=== PATIENT | male | born 1965 | race Caucasian/White ===

== ENCOUNTER 2019-12-23 16:32 | Observation (INO) | payer BC, OTHER ==
[~2019-12-23] VITALS: Ht 185.4 cm; Wt 134.4 kg
[~2019-12-23 16:32] MED LIST: ADULT LOW DOSE81 MG PO; ALLOPURINOL100 MG PO; ALTACE10 MG PO; BENZONATATE100 MG PO; CEFTIN500 MG PO; CLARITIN10 MG PO; DITROPAN XL5 MG PO; FLONASE16 GM; GLUCOPHAGE XR500 MG PO; HYDROCHLOROTHIA25 MG PO; LIPITOR10 MG PO; NORCO 10-325 T1 EACH PO; PAROXETINE HCL20 MG PO; POTASSIUM CHLO10 MEQ PO; PYRIDIUM200 MG PO; TEMAZEPAM30 MG PO; VALIUM5 MG PO
[2019-12-23] MEDS ORDERED: ONDANSETRON HCL INJ 2MG/ML 2ML 2 MG/ML VIAL IV STA (17:30)
[2019-12-23] MEDS ORDERED: SODIUM CHLORIDE 0.9% 1000ML 1,000 ML IV STA (17:30)
[2019-12-23] MEDS ORDERED: MORPHINE SULFATE INJ 4 MG/ML INJ 1ML IV STA (17:30)
[2019-12-23 17:46] LABS: BASOPHILS % 0.3 % (0.0-1.0); EOSINOPHILS % 0.2 % (0.0-6.0); HEMATOCRIT 42.5 % (38.2-49.6); HEMOGLOBIN 13.5 g/dL (14.0-18.0); LYMPHOCYTES # (AUTO) 1.5 (1.0-3.2); LYMPHOCYTES % 11.3 % (18.0-39.1); MEAN CORPUSCULAR HEMOGLOBIN 26.4 pg (28-32); MEAN CORPUSCULAR HGB CONC 31.8 g/dL (31-35); MEAN CORPUSCULAR VOLUME 83.2 fL (81-99); MONOCYTES # (AUTO) 0.8 (0.2-0.8); MONOCYTES % 5.8 % (4.4-11.3); NEUTROPHILS # (AUTO) 10.9 (2.1-6.9); NEUTROPHILS % 80.6 % (38.7-80.0); PLATELET COUNT 214 x10e3/uL (140-360); RED BLOOD COUNT 5.11 x10e6/uL (4.3-5.7); RED CELL DISTRIBUTION WIDTH 14.5 % (11.7-14.4)
[2019-12-23] MEDS ORDERED: DIATRIZOATE MEGL/DIATRIZOA SOD 30 ML BTL PO ONE (17:46)
[2019-12-23 17:53] LABS: PROTHROMBIN TIME 13.8 seconds (11.9-14.5)
[2019-12-23 17:54] LABS: PARTIAL THROMBOPLASTIN TIME 25.8 seconds (23.8-35.5)
[2019-12-23 18:05] LABS: ALANINE AMINOTRANSFERASE 46 IU/L (0-55); ALKALINE PHOSPHATASE 125 IU/L (40-150); ANION GAP 14.1 mmol/L (8-16); BLOOD UREA NITROGEN 14 mg/dL (7-26); BUN/CREATININE RATIO 16 (6-25); CALCIUM 9.9 mg/dL (8.4-10.2); CARBON DIOXIDE 27 mmol/L (22-29); CHLORIDE 101 mmol/L (98-107); CREATINE KINASE 67 IU/L (30-200); CREATININE, SERUM 0.86 mg/dL (0.72-1.25); EST GLOMERULAR FILTRATION RATE > 60 ML/MIN (60-); GLUCOSE 108 mg/dL (74-118); LIPASE 19 U/L (8-78); POTASSIUM 4.1 mmol/L (3.5-5.1); SODIUM 138 mmol/L (136-145)
[2019-12-23 18:07] LABS: BILIRUBIN,URINE NEGATIVE (NEGATIVE); CLARITY,URINE SL CLOUDY (CLEAR); COLOR,URINE YELLOW (YELLOW); KETONES,URINE NEGATIVE (NEGATIVE); LEUKOCYTE ESTERASE ,URINE NEGATIVE (NEGATIVE); NITRITE,URINE NEGATIVE (NEGATIVE); PROTEIN,URINE DIPSTICK NEGATIVE (NEGATIVE); URINE UROBILINOGEN 2 mg/dL (0.2 - 1)
[2019-12-23 18:08] LABS: BACTERIA,URINE FEW /HPF; EPITHELIAL CELLS,URINE FEW /LPF; MUCUS,URINE MODERATE (RARE); WBC,URINE (MAN) 0-5 /HPF (0-5)
--- NOTE | 2019-12-23 18:33 | Emergency Department Note ---
History of Present Illnes History of Present Illness Chief Complaint: Abdominal Complaints History of Present Illness This is a 54 year old male HERE FOR LOWER DULL ABDOMINAL PAIN SINCE THIS AFTERNOON AT 1PM. STATES THAT PAIN WAS SO BAD THAT HE HAD TO THROW UP, TRIED TAKING TUMS AND THEN HAD DIARRHEA X1 INSTANCE. Historian: Patient Arrival Mode: Car Onset (how long ago): hour(s) Location: lower abdomen Quality: pain Radiation: Reports non-radiation Severity: moderate Onset quality: sudden Timing of current episode: intermittent Progression: waxing and waning Chronicity: new Context: Denies recent illness Relieving factors: none Exacerbating factors: none Associated symptoms: Reports nausea/vomiting, Reports other (diarrhea) Treatments prior to arrival: none (RODERICK WARREN MD) Past Medical/Family History Physician Review I have reviewed the patient's past medical and family history. Any updates have been documented here. (RODERICK WARREN MD) Past Medical History Recent Fever: No Clinical Suspicion of Infectio: No New/Unexplained Change in Ment: No Past Medical History: Hypertension, Hyperlipedemia Other Medical History: GOUT ANXIETY Past Surgical History: Cholecysctectomy, Bariatric Surgery (RODERICK WARREN MD) Past Medical History: Hypertension (DANITA TURK DO) Social History Smoking Cessation: Never Smoker Counseling Performed: No Alcohol Use: None Any Illegal Drug Use: No TB Exposure/Symptoms: No Physically hurt or threatened: No (RODERICK WARREN MD) Other Last Tetanus: UNKNOWN Any Pre-Existing Lines (PICC,: No Is patient up to date on immun: No Last Flu: utd Last Pneumovax: utd (RODERICK WARREN MD) Review of Systems Review of Systems Constitutional: Reports no symptoms EENTM: Reports no symptoms Cardiovascular: Reports no symptoms Respiratory: Reports no symptoms Gastrointestinal: Reports as per HPI, Reports abdominal pain, Reports diarrhea, Reports nausea, Reports vomiting Genitourinary: Reports no symptoms Musculoskeletal: Reports no symptoms Integumentary: Reports no symptoms Neurological: Reports no symptoms Psychological: Reports no symptoms Endocrine: Reports no symptoms Hematological/Lymphatic: Reports no symptoms (RODERICK WARREN MD) Physical Exam Related Data Allergies: Coded Allergies: No Known Allergies (Unverified , 03/12/14) Triage Vital Signs Vital Signs Date Time Temp Pulse Resp B/P (MAP) Pulse Ox O2 Delivery O2 Flow Rate FiO2 12/23/19 17:10 97.8 77 16 117/83 100 Vital signs reviewed: Yes (RODERICK WARREN MD) Unable to obtain allergies: Unable to obtain due to (DANITA TURK, DO) Physical Exam CONSTITUTIONAL Constitutional: Present well-developed, Present well-nourished HENT HENT: Present normocephalic, Present atraumatic, Present oropharynx clear/moist, Present nose normal HENT L/R: Present left ext ear normal, Present right ext ear normal EYES Eyes: Reports PERRL, Reports conjunctivae normal NECK Neck: Present ROM normal PULMONARY Pulmonary: Present effort normal, Present breath sounds normal CARDIOVASCULAR Cardiovascular: Present regular rhythm, Present heart sounds normal, Present capillary refill normal, Present normal rate GASTROINTESTINAL Abdominal: Present soft, Present tender (moderate tenderness LLQ and suprapubic); Absent guarding, Absent mass, Absent rebound, Absent left CVA tenderness, Absent right CVA tenderness GENITOURINARY Genitourinary: Present exam deferred SKIN Skin: Present warm, Present dry MUSCULOSKELETAL Musculoskeletal: Present ROM normal NEUROLOGICAL Neurological: Present alert, Present oriented x 3, Present no gross motor or sensory deficits PSYCHOLOGICAL Psychological: Present mood/affect normal, Present judgement normal (RODERICK WARREN MD) Results Laboratory Result Diagram: 12/23/19 1723 12/23/19 1723 Laboratory Laboratory Tests Test 12/23/19 17:25 12/23/19 17:23 Urine Color Yellow (YELLOW) Urine Clarity Sl cloudy (CLEAR) Urine pH 7 (5 - 7) Urine Specific [place] 1.025 (1.010-1.025) Urine Protein Negative (NEGATIVE) Urine Glucose (UA) Negative (NEGATIVE) Urine Ketones Negative (NEGATIVE) Urine Blood Negative (NEGATIVE) Urine Nitrite Negative (NEGATIVE) Urine Bilirubin Negative (NEGATIVE) Urine Urobilinogen 2 mg/dL (0.2 - 1) Urine Leukocyte Esterase Negative (NEGATIVE) Urine RBC None /HPF (0-5) Urine WBC 0-5 /HPF (0-5) Urine Epithelial Cells Few /LPF (NONE) Urine Bacteria Few /HPF (NONE) Urine Mucus Moderate (RARE) White Blood Count 13.57 x10e3/uL (4.8-10.8) Red Blood Count 5.11 x10e6/uL (4.3-5.7) Hemoglobin 13.5 g/dL (14.0-18.0) Hematocrit 42.5 % (38.2-49.6) Mean Corpuscular Volume 83.2 fL (81-99) Mean Corpuscular Hemoglobin 26.4 pg (28-32) Mean Corpuscular Hemoglobin Concent 31.8 g/dL (31-35) Red Cell Distribution Width 14.5 % (11.7-14.4) Platelet Count 214 x10e3/uL (140-360) Neutrophils (%) (Auto) 80.6 % (38.7-80.0) Lymphocytes (%) (Auto) 11.3 % (18.0-39.1) Monocytes (%) (Auto) 5.8 % (4.4-11.3) Eosinophils (%) (Auto) 0.2 % (0.0-6.0) Basophils (%) (Auto) 0.3 % (0.0-1.0) Neutrophils # (Auto) 10.9 (2.1-6.9) Lymphocytes # (Auto) 1.5 (1.0-3.2) Monocytes # (Auto) 0.8 (0.2-0.8) Eosinophils # (Auto) 0.0 (0.0-0.4) Basophils # (Auto) 0.0 (0.0-0.1) Absolute Immature Granulocyte (auto 0.24 x10e3/uL (0-0.1) Prothrombin Time 13.8 seconds (11.9-14.5) Prothromb Time International Ratio 1.00 Activated Partial Thromboplast Time 25.8 seconds (23.8-35.5) Sodium Level 138 mmol/L (136-145) Potassium Level 4.1 mmol/L (3.5-5.1) Chloride Level 101 mmol/L (98-107) Carbon Dioxide Level 27 mmol/L (22-29) Anion Gap 14.1 mmol/L (8-16) Blood Urea Nitrogen 14 mg/dL (7-26) Creatinine 0.86 mg/dL (0.72-1.25) Estimat Glomerular Filtration Rate > 60 ML/MIN (60-) BUN/Creatinine Ratio 16 (6-25) Glucose Level 108 mg/dL (74-118) Calcium Level 9.9 mg/dL (8.4-10.2) Total Bilirubin 0.8 mg/dL (0.2-1.2) Aspartate Amino Transf (AST/SGOT) 30 IU/L (5-34) Alanine Aminotransferase (ALT/SGPT) 46 IU/L (0-55) Alkaline Phosphatase 125 IU/L (40-150) Creatine Kinase 67 IU/L (30-200) Creatine Kinase MB 0.50 ng/mL (0-5.0) Troponin I 0.006 ng/mL (0-0.300) Total Protein 7.9 g/dL (6.5-8.1) Albumin 4.0 g/dL (3.5-5.0) Globulin 3.9 g/dL (2.3-3.5) Albumin/Globulin Ratio 1.0 (0.8-2.0) Lipase 19 U/L (8-78) Lab results reviewed: Yes (RODERICK WARREN MD) Assessment & Plan Medical Decision Making MDM 54 year old male arrives to the ED with complaints of abdominal pain. Sign out received from Dr. Warren to follow-up CT scan. CT imaging reviewed consistent with an ileus. Patient continued to complain of abdominal pain. Patient admitted for monitoring and possible GI versus surgical evaluation per admitting physician. (DANITA TURK DO) Assessment & Plan Final Impression: (1) Ileus (DANITA TURK DO) Depart Disposition: ADMITTED Last Vital Signs Date Time Temp Pulse Resp B/P (MAP) Pulse Ox O2 Delivery O2 Flow Rate FiO2 12/23/19 17:52 98.1 78 16 128/88 96 (RODERICK WARREN MD) Home Meds Reported Medications Loratadine (CLARITIN) 10 Mg Tablet, 10 MG PO DAILY 03/12/14 Fluticasone Propionate (FLONASE) 16 Gm [place].susp, 1 SPRAY NA BID 03/12/14 Benzonatate (BENZONATATE) 100 Mg Capsule, 100 MG PO Q4HR PRN COUGH 03/12/14 Diazepam (VALIUM) 5 Mg Tablet, 5 MG PO Q6HR PRN 03/12/14 Temazepam (TEMAZEPAM) 30 Mg Capsule, 30 MG PO AT BEDTIME 03/12/14 Paroxetine Hcl (PAROXETINE HCL) 20 Mg Tablet, 20 MG PO DAILY 03/12/14 Potassium Chloride (POTASSIUM CHLORIDE) 10 Meq Tablet.er, 10 MEQ PO DAILY 03/12/14 Hydrochlorothiazide (HYDROCHLOROTHIAZIDE) 25 Mg Tablet, 25 MG PO DAILY 03/12/14 Medications in the ED Morphine Sulfate 4 mg ONCE STAT IV Last administered on 12/23/19at 17:53; Admin Dose 4 MG; Start 12/23/19 at 17:30; Stop 12/23/19 at 17:36; Status DC Ondansetron HCl 4 mg ONCE STAT IV Last administered on 12/23/19at 17:53; Admin Dose 4 MG; Start 12/23/19 at 17:30; Stop 12/23/19 at 17:36; Status DC Sodium Chloride 1,000 ml @ 0 mls/hr Q0M STAT IV Last administered on 12/23/19at 17:53; Admin Dose 999 MLS/HR; Start 12/23/19 at 17:30; Stop 12/23/19 at 17:32; Status DC Diatrizoate Meglum/ Diatrizoate Sod 30 ml STK-MED ONCE PO ; Start 12/23/19 at 17:46; Stop 12/23/19 at 17:41; Status DC (RODERICK WARREN MD) RODERICK WARREN MD Dec 23, 2019 18:33 DANITA TURK DO Dec 23, 2019 20:53
[2019-12-23] MEDS: PIPER-TAZ 3.375 GM 50 ML IV SCH (19:53)
[2019-12-23] MEDS ORDERED: IOPAMIDOL 370 MG/ML 200 ML INFUS..BTL INJ ONE (19:56)
[2019-12-23] MEDS ORDERED: SODIUM CHLORIDE 0.9% 50ML 50 ML ONE (19:56)
--- NOTE | 2019-12-23 20:20 | Diagnostic Imaging Report ---
EXAM: CT Abdomen and Pelvis WITH contrast INDICATION: LLQ ABD PAIN COMPARISON: None. TECHNIQUE: Abdomen and pelvis were scanned utilizing a multidetector helical scanner from the lung base to the pubic symphysis after administration of IV contrast. Coronal and sagittal reformations were obtained. Dose modulation, iterative reconstruction, and/or weight based adjustment of the mA/kV was utilized to reduce the radiation dose to as low as reasonably achievable. Routine protocol was performed. Scan was performed when during portal venous phase. IV CONTRAST: 150 mL of Omnipaque 300 ORAL CONTRAST: Water COMPLICATIONS: None RADIATION DOSE: Total DLP: 1380.27 mGy-cm Estimated effective dose: (DLP x 0.015 x size factor) mSv CTDIvol has been reviewed. It is below the limits set by the Radiation Protocol Committee (RPC). FINDINGS: LINES and TUBES: None. LOWER THORAX: Unremarkable HEPATOBILIARY: The liver is diffuse hypodense compared to the spleen, consistent with diffuse hepatic diffuse hepatic steatosis. No focal hepatic lesions. No biliary ductal dilation. GALLBLADDER: There are cholecystectomy clips. SPLEEN: No splenomegaly. No focal splenic lesion. PANCREAS: No focal masses or ductal dilatation. ADRENALS: No adrenal nodules KIDNEYS/URETERS: Kidneys enhance symmetrically. No hydronephrosis. No cystic or solid mass lesions. No stones. GI TRACT: Surgical changes are seen in the stomach. Mildly dilated few loops of the small bowel is seen. No definite transition point likely due to ileus.. PELVIC ORGANS/BLADDER: The bladder is unremarkable. LYMPH NODES: No lymphadenopathy. VESSELS: No aortic aneurysm or dissection. PERITONEUM / RETROPERITONEUM: No free air or fluid. BONES: Unremarkable. SOFT TISSUES: Unremarkable. IMPRESSION: Mildly dilated few loops of the small bowel with no definite transition point likely due to ileus. Recommend follow-up KUB to exclude obstruction. Signed by: Louie Parikh MD on 12/23/2019 8:17 PM
[2019-12-23] MEDS ORDERED: MORPHINE SULFATE 2 MG/ML SYR 1ML IV PRN (21:00)
[2019-12-23] MEDS ORDERED: MORPHINE SULFATE INJ 4 MG/ML INJ 1ML IV PRN (21:00)
[2019-12-23] MEDS ORDERED: ONDANSETRON HCL INJ 2MG/ML 2ML 2 MG/ML VIAL IV PRN (21:00)
[2019-12-23] MEDS ORDERED: DIAZEPAM 5 MG TAB PO PRN (23:00)
[2019-12-23] MEDS ORDERED: BENZONATATE 100 MG CAP PO PRN (23:00)
[2019-12-23] MEDS ORDERED: NON-FORMULARY MEDICATION (Temazepam 30 MG) PO SCH (23:00)
[2019-12-23] MEDS ORDERED: ACETAMINOPHEN 1000 MG/100 ML IV PRN (23:00)
[2019-12-23 23:22] VITALS: BP 135/88
[2019-12-23] MEDS ORDERED: ATORVASTATIN CA20 MG PO (23:49)
[2019-12-23] MEDS ORDERED: ALLOPURINOL100 MG PO (23:49)
[2019-12-23] MEDS ORDERED: ASPIR 8181 MG (23:49)
[2019-12-24] VITALS (8 sets, daily range): BP systolic 103–135; BP diastolic 67–88
[2019-12-24] MEDS: PIPER-TAZ 3.375 GM 50 ML IV SCH ×5 (00:29→23:50)
[2019-12-24] MEDS: TEMAZEPAM 15 MG CAP PO SCH ×2 (00:29→20:55)
[2019-12-24] MEDS: FAMOTIDINE 20 MG/2 ML VIAL IV SCH ×3 (00:29→17:29)
[2019-12-24] MEDS: SODIUM CHLORIDE 0.45% 1,000 ML IV SCH ×3 (00:29→17:29)
[2019-12-24] MEDS: PAROXETINE HCL 20 MG TAB PO SCH ×2 (00:30→20:55)
[2019-12-24 05:29] LABS: BASOPHILS % 0.2 % (0.0-1.0); EOSINOPHILS % 0.1 % (0.0-6.0); HEMATOCRIT 41.8 % (38.2-49.6); HEMOGLOBIN 13.1 g/dL (14.0-18.0); LYMPHOCYTES # (AUTO) 1.4 (1.0-3.2); LYMPHOCYTES % 10.8 % (18.0-39.1); MEAN CORPUSCULAR HEMOGLOBIN 25.7 pg (28-32); MEAN CORPUSCULAR HGB CONC 31.3 g/dL (31-35); MONOCYTES # (AUTO) 1.1 (0.2-0.8); MONOCYTES % 8.2 % (4.4-11.3); NEUTROPHILS # (AUTO) 10.2 (2.1-6.9); NEUTROPHILS % 80.4 % (38.7-80.0); PLATELET COUNT 206 x10e3/uL (140-360); RED CELL DISTRIBUTION WIDTH 14.6 % (11.7-14.4)
[2019-12-24 05:48] LABS: ALANINE AMINOTRANSFERASE 38 IU/L (0-55); ALBUMIN 3.5 g/dL (3.5-5.0); ALKALINE PHOSPHATASE 111 IU/L (40-150); ANION GAP 13.3 mmol/L (8-16); BLOOD UREA NITROGEN 13 mg/dL (7-26); BUN/CREATININE RATIO 14 (6-25); CALCIUM 8.9 mg/dL (8.4-10.2); CARBON DIOXIDE 26 mmol/L (22-29); CHLORIDE 102 mmol/L (98-107); CREATININE, SERUM 0.92 mg/dL (0.72-1.25); EST GLOMERULAR FILTRATION RATE > 60 ML/MIN (60-); GLUCOSE 117 mg/dL (74-118); POTASSIUM 4.3 mmol/L (3.5-5.1); SODIUM 137 mmol/L (136-145)
[2019-12-24] MEDS: FLUTICASONE PROPIONATE NASAL SPRAY NS SCH ×2 (08:41→17:00)
[2019-12-24] MEDS: LORATADINE 10 MG TAB PO SCH (08:45)
[2019-12-24] MEDS ORDERED: PAROXETINE HCL 20 MG TAB PO SCH (09:00)
--- NOTE | 2019-12-24 10:17 | Diagnostic Imaging Report ---
EXAM: Abdomen Radiograph INDICATION: ILEUS F/U COMPARISON: CT abdomen and pelvis dated 12/23/2019. FINDINGS: TUBES and LINES: None. LOWER CHEST: No abnormalities in the lower chest. ABDOMEN: Unchanged mildly dilated few loops of the small bowel in the left abdomen similar to prior CT due to ileus. Recommend follow-up KUB to exclude obstruction. No pneumoperitoneum. No abnormal abdominal calcifications. BONES AND SOFT TISSUES: No acute osseous lesion. Soft tissues are unremarkable. IMPRESSION: Unchanged mildly dilated few loops of the small bowel in the left abdomen similar to prior CT due to ileus. Signed by: Louie Parikh MD on 12/24/2019 10:14 AM
[2019-12-24] MEDS: LEVOFLOXACIN 500MG/D5W 100ML 100 ML IV SCH (10:59)
--- NOTE | 2019-12-24 19:10 | NUR ---
Patient visited in room during nursing rounds. Patient alert and oriented x3. Ambulatory in room prn. IVF (1/2NS at 100ml/hr) infusing. On clear liquid diet. Patient denies any discomfort or pain at this time. Call childers within reach. Will monitor pt closely.
[2019-12-25] VITALS: BP 108/66
[2019-12-25 04:00] VITALS: BP 100/69
[2019-12-25 05:35] LABS: BASOPHILS # (AUTO) 0.1 (0.0-0.1); BASOPHILS % 0.7 % (0.0-1.0); EOSINOPHILS # (AUTO) 0.2 (0.0-0.4); EOSINOPHILS % 3.3 % (0.0-6.0); HEMATOCRIT 39.1 % (38.2-49.6); LYMPHOCYTES # (AUTO) 2.7 (1.0-3.2); LYMPHOCYTES % 37.7 % (18.0-39.1); MEAN CORPUSCULAR HEMOGLOBIN 25.8 pg (28-32); MEAN CORPUSCULAR HGB CONC 30.7 g/dL (31-35); MEAN CORPUSCULAR VOLUME 83.9 fL (81-99); MONOCYTES % 13.2 % (4.4-11.3); NEUTROPHILS # (AUTO) 3.3 (2.1-6.9); NEUTROPHILS % 44.8 % (38.7-80.0); PLATELET COUNT 170 x10e3/uL (140-360); RED BLOOD COUNT 4.66 x10e6/uL (4.3-5.7); RED CELL DISTRIBUTION WIDTH 14.8 % (11.7-14.4)
[2019-12-25] MEDS: SODIUM CHLORIDE 0.45% 1,000 ML IV SCH (06:00)
[2019-12-25] MEDS: PIPER-TAZ 3.375 GM 50 ML IV SCH (06:00)
[2019-12-25 06:40] LABS: ANION GAP 10.3 mmol/L (8-16); CALCIUM 8.6 mg/dL (8.4-10.2); CARBON DIOXIDE 28 mmol/L (22-29); CHLORIDE 106 mmol/L (98-107); EST GLOMERULAR FILTRATION RATE > 60 ML/MIN (60-); GLUCOSE 87 mg/dL (74-118); POTASSIUM 4.3 mmol/L (3.5-5.1); SODIUM 140 mmol/L (136-145)
[2019-12-25 06:53] LABS: BLOOD UREA NITROGEN 9 mg/dL (7-26); BUN/CREATININE RATIO 9 (6-25)
[2019-12-25 08:00] VITALS: BP 110/65
[2019-12-25 08:04] VITALS: BP 100/69
[2019-12-25 08:05] VITALS: BP 100/69
[2019-12-25] MEDS: FLUTICASONE PROPIONATE NASAL SPRAY NS SCH (09:00)
[2019-12-25] MEDS: FAMOTIDINE 20 MG/2 ML VIAL IV SCH (09:09)
[2019-12-25] MEDS: LORATADINE 10 MG TAB PO SCH (09:09)
[2019-12-25] MEDS: LEVOFLOXACIN 500MG/D5W 100ML 100 ML IV SCH (10:11)
--- NOTE | 2019-12-25 10:14 | NUR ---
Day 2 obs. Requested dc plan. Awaiting reply
--- NOTE | 2019-12-25 10:32 | NUR ---
Dr. Hermosillo here. Notified him pt is Day 2 obs.
[2019-12-25] MEDS ORDERED: CIPRO500 MG PO (11:22)
[2019-12-25] MEDS ORDERED: FLAGYL250 MG (11:23)
[2019-12-25] MEDS ORDERED: SENNA-S LAXATI1 EACH (11:25)
--- NOTE | 2019-12-25 11:28 | Discharge Summary ---
FINAL DIAGNOSES: 1. Ileus, most likely enteritis. 2. Leukocytosis, resolved. 3. Abdominal pain, nausea and vomiting, resolved. SUMMARY: A 54-year-old male came to the hospital with slight elevation of WBC of 13.5. WBC now is 7.3, after initiation of antibiotics. The patient's CT scan of abdomen and pelvis on admission showed that the patient has mildly dilated few loops of the small bowel with no definitive transitional point, most likely ileus/enteritis/most likely adhesion causing obstruction. The patient had multiple bowel movement today. He is feeling much better. We will trial diet today. If he tolerates solid food, he can go home. We will continue antibiotics for 5 days, Cipro and Flagyl. Repeat the patient Zofran as needed. Start the patient on stool softener. The patient does take pain medication at home. The patient is otherwise stable. If he does go home today after solid food tolerance, the patient may follow up with me next week. Discussed with the patient at length. Resume home medication on discharge. New prescription as prescribed. Five days of Cipro 500 mg twice a day and Flagyl 500 mg twice a day as well. MD KWABENA Hilario/SHALINI /[id number]
[2019-12-25 11:43] VITALS: BP 123/79
--- NOTE | 2019-12-25 12:00 | NUR ---
DISCHARGING HOME TODAY
--- NOTE | 2019-12-25 12:27 | NUR ---
Left ambulatory to own automobile with all prescriptions and instructions. IV out, left through ed
== END 2019-12-25 12:27 | disposition home or self-care (01) ==
LOC: ER 16:32 → ERHOLD 21:07 → MED/SURG 23:05
PROVIDERS: ADMIT Internal Medicine; ATTEND Internal Medicine
DX: K56.50 Intestinal adhesions [bands], unspecified as to partial versus complete obstruction (principal); I10 Essential (primary) hypertension; E78.5 Hyperlipidemia, unspecified; Z98.84 Bariatric surgery status
CPT/HCPCS: 36415 ×3; 74018; 74177; 80048; 80053 ×2; 81001; 82550; 82553; 82948 ×2; 83690; 84484; 85025 ×3; 85610; 85730; 87086; 87635; 99284; G0378 ×3; J1956 ×2; J2270; J2405; J2543 ×3; J7030; Q9967